=== PATIENT | male | born 1960 | race Two or more races ===

== ENCOUNTER → 2019-03-04 | Day surgery (SDC) | payer OTHER ==
[~2019-03-04] VITALS: Ht 165.1 cm; Wt 73.5 kg
[~2019-03-04] MED LIST: CIPROFLOXACIN 400MG/200ML 200 ML IV ONE; HYDROmorphone HCL 2 MG/ML VL IV PRN; KETOROLAC TROMETH 30 MG/ML 1ML VIAL IV ONE; METOCLOPRAMIDE HCL 5MG/ml INJ 2ml VIAL IV PRN; MIDAZOLAM HCL 1MG/1ML-2 ML VIAL ONE; MORPHINE SULFATE 4 MG/ML SYR/VIAL IV PRN; ONDANSETRON HCL 4 MG/2 ML VIAL ONE; PROPOFOL 10 MG/ML 20 ML IV ONE; SODIUM CHLORIDE LOCK 10 ML ONE; fentaNYL CITRATE 100 MCG/2 ML VL IV PRN; fentaNYL CITRATE 100 MCG/2 ML VL ONE
[2019-03-04 10:14] VITALS: BP 126/85
== END | disposition home or self-care (01) ==
LOC: SUR 06:20
PROVIDERS: ATTEND Urology
DX: N40.1 Benign prostatic hyperplasia with lower urinary tract symptoms (principal); C61 Malignant neoplasm of prostate
CPT/HCPCS: 55700; 76942; 88305; 88342; C1769; J0744; J2250; J2405; J2704; J3010; J7030